=== PATIENT | female | born 1975 | race Caucasian/White ===

== ENCOUNTER 2018-02-09 10:28 | Outpatient (REF) | payer MEDICAID, SELFPAY ==
--- NOTE | 2018-02-09 09:30 | PAPFT_PTH ---
PATIENT: Amna Gonzalez LOC: [facility] U#:[id number] AGE/SX: 42/F ROOM: RE02/09/[address]: Oksana Taylor : 1975 BED: DIS: 02/09/2018 SPEC #: [id number] RECD: 02/09/18 12:48 STATUS: ELVER REDavid #: [id number] YAIR: 02/09/18 09:[address]: Oksana Taylor DEPT: [facility] Cytology RECD BY: Sonya Everett ENTERED: 02/09/18 12:48 SP TYPE: PAPFT OTHR DR: Gillian Nicole Tissues: 1 - CX/ENDOCX FOR PAP SMEARS Procedures: PAP THIN PREP/[facility] Screening HPV DNA PROBE Comments: [id number]
[2018-02-09 13:33] LABS: HCT 41.2 % (36.0-46.0); HGB 13.5 g/dL (12.0-15.5); Mean Corp. HGB Concentration 32.8 g/dL (32.0-36.0); Mean Corpuscular Hemoglobin 26.5 pg (27.0-33.0); Mean Corpuscular Volume 80.9 fL (80-95); Mean Platelet Volume 11.6 fL (8.0-11.0); Platelet Count 223 x1000/uL (130-400); RBC 5.09 m/cumm (4.00-5.20); RBC Distribution Width 15.5 % (11.7-14.6); White Blood Cell Count 6.06 k/cumm (4.4-10.8)
[2018-02-09 13:57] LABS: Ferritin 6 ng/mL (8-388); TSH (W/Ref FT4) 1.62 uIU/mL (0.358-3.74)
== END 2018-02-09 10:48 ==
LOC: NCHCN 10:28
PROVIDERS: PCP Nurse Practitioner Adult Health; Visit Provider Family Medicine
DX: N92.0 Excessive and frequent menstruation with regular cycle (principal); Z12.4 Encounter for screening for malignant neoplasm of cervix; Z00.00 Encounter for general adult medical examination without abnormal findings; Z11.51 Encounter for screening for human papillomavirus (HPV)
CPT/HCPCS: 85027; 88142; 82728; 84443; 87624

== ENCOUNTER 2021-09-15 15:37 | Outpatient (REF) | payer OTHER, SELFPAY ==
[2021-09-15 21:03] LABS: MCH 27.3 pg (27.0-33.0); MCHC 31.8 % (32.0-36.0); MCV 85.9 fL (80-95); RBC 1.28 10^6/uL (3.93-5.22); RDW 13.4 % (11.7-14.6); RDW-SD 41.9 fL
[2021-09-15 21:35] LABS: Ferritin 9 ng/mL (8-252); TSH 1.79 uIU/mL (0.36-3.74)
[2021-09-15 21:47] LABS: HGB 3.5 g/dL (11.2-15.7); Platelet Count 2 10^3/uL (130-400); WBC 0.56 10^3/uL (4.4-10.8)
== END 2021-09-15 15:38 | disposition home or self-care (01) ==
LOC: NCHCN 15:37
PROVIDERS: PCP Nurse Practitioner Adult Health; Visit Provider Registered Nurse
DX: R53.83 Other fatigue (principal); R78.89 Finding of other specified substances, not normally found in blood
CPT/HCPCS: 85027; 82728; 84443